=== PATIENT | male | born 1935 | race Caucasian/White ===

== ENCOUNTER 2018-04-24 09:18 | Inpatient (IN) ==
[2018-04-24] MEDS ORDERED: Sodium Chlor 0.9% Inj 500 ML IV.SIG ONE (09:49)
--- NOTE | 2018-04-24 10:14 | XR ---
EXAM DATE: 04/24/2018 10:07 AM EDT AGE/SEX: 82 years / Male INDICATIONS: Fever CLINICAL DATA: This is the patient's initial encounter. Patient reports that signs and symptoms have been present for 4 - 6 days and indicates a pain score of 0/10. MEDICAL/SURGICAL HISTORY: Cardiovascular disease. Pacemaker. COMPARISON: No prior exams available for comparison. FINDINGS: A single AP view of the chest demonstrates the lungs to be symmetrically aerated without evidence of mass, infiltrate or effusion. Slight elevation right hemidiaphragm. Left-sided pacemaker with [address] leads. The cardiomediastinal contours are unremarkable. Osseous structures are intact. CONCLUSION: Slight elevation right hemidiaphragm. No infiltrate. Electronically signed by: Juancarlos Romero MD 04/24/2018 10:13 AM EDT
[2018-04-24 10:19] LABS: Baso % (Auto) 0.2 % (0.0-2.0); Hematocrit 32.9 % (39.0-51.0); Hemoglobin 11.1 gm/dL (13.0-17.0); Lymph # (Auto) 0.2 th/mm3 (1.0-4.8); Lymph % (Auto) 2.6 % (9.0-44.0); Mean Corpuscular HGB Conc 33.7 % (32.0-36.0); Mean Corpuscular Hemoglobin 31.9 pg (27.0-34.0); Mean Corpuscular Volume 94.6 fL (80.0-100.0); Mean Platelet Volume 9.3 fL (7.0-11.0); Mono # (Auto) 0.6 th/mm3 (0.0-0.9); Mono % (Auto) 7.1 % (0.0-8.0); Neut # (Auto) 8.2 th/mm3 (1.8-7.7); Neut % (Auto) 90.1 % (16.0-70.0); Platelet Count 203 th/mm3 (150-450); Red Blood Count 3.48 mil/mm3 (4.50-5.90); Red Cell Distribution Width 16.4 % (11.6-17.2); White Blood Count 9.1 th/mm3 (4.0-11.0)
[2018-04-24 10:27] LABS: Activated Partial Thrombo Time 32.9 sec (24.3-30.1); INR 1.3 Ratio; Prothrombin Time 12.7 sec (9.8-11.6)
[2018-04-24 10:39] LABS: Alanine Aminotransferase 22 U/L (12-78); Albumin 2.9 g/dL (3.4-5.0); Anion Gap 12 meq/L (5-15); Aspartate Aminotransferase 16 U/L (15-37); Blood Urea Nitrogen 32 mg/dL (7-18); Calcium 8.2 mg/dL (8.5-10.1); Carbon Dioxide 23.9 meq/L (21.0-32.0); Chloride 104 meq/L (98-107); Glomerular Filtration Rate 27 mL/min (>89); Glucose,Random 156 mg/dL (74-106); Potassium 3.3 meq/L (3.5-5.1); Sodium 140 meq/L (136-145)
[2018-04-24 10:42] LABS: Alkaline Phosphatase 63 U/L (45-117); Total Protein 7.6 g/dL (6.4-8.2); Troponin I 0.17 ng/mL (0.02-0.05)
--- NOTE | 2018-04-24 10:48 | ED ---
HPI General Chief complaint: Weakness Stated complaint: Time Seen by Provider: 04/24/18 09:40 Source: patient Mode of arrival: ambulatory Limitations: no limitations History of Present Illness HPI narrative: Patient is a 82 year old male who comes in due to weakness and confusion. Per , this has been going on for about a month. Daughter says she noticed a change in him earlier this week. He went to see his doctor at the [facility] Wednesday and he is supposed to follow up with nephrology due to decreasing renal function. He says he has been feeling hot and having chills. He has had some nausea and some abdominal pain. He denies chest pain or SOB. He denies cough or cold. Severity is mild. says he is forgetful and seems confused at times. Related Data Home Medications Medication Instructions Recorded Confirmed amlodipine 10 mg PO DAILY 04/24/18 04/24/18 atorvastatin 40 mg PO DAILY 04/24/18 04/24/18 cholecalciferol (vitamin D3) 1,000 unit PO DAILY 04/24/18 04/24/18 [Vitamin D3] cyanocobalamin (vitamin B-12) 1,000 mcg PO DAILY 04/24/18 04/24/18 [Vitamin B-12] metoprolol tartrate 50 mg PO BID 04/24/18 04/24/18 warfarin 5 mg PO 5XW 04/24/18 04/24/18 warfarin 7.5 mg PO 2XWEEK 04/24/18 04/24/18 Allergies Allergy/AdvReac Type Severity Reaction Status Date / Time No Known Allergies Allergy Uncoded 07/25/13 09:23 Review of Systems Except as stated in HPI: all other systems reviewed are negative Constitutional Reports chills and Reports fever(s) Cardiovascular Denies chest pain and Denies edema Gastrointestinal Reports abdominal pain and Reports nausea Musculoskeletal Reports myalgias Integumentary/Breasts Denies change in pigmentation Neurologic Reports confusion and Denies focal weakness [facility] Medical History Medical History Congestive heart failure (Acute) High cholesterol (Acute) Hypertension (Acute) Pacemaker (Acute) Surgical History Surgical History History of skin surgery (Acute) Family History Family History Sister Cancer Brother Coronary artery disease Social History Social History Substance History: No History of Abuse Smoking Status: Never smoker How Often Do You Have a Drink Containing Alcohol: 2 to 4 times a month Recent Travel in [facility] within the Last 8 Weeks: No Recent Out of Country Travel within the Last 8 Weeks: No Immunization History Tetanus Immunization: <5 Years Hx Influenza Vaccine This Season: Yes Exam Narrative Exam Narrative: GENERAL: Awake and alert, in no acute distress. SKIN: Focused skin assessment warm/dry. No wounds or signs of infection. HEAD: Atraumatic. Normocephalic. EYES: Pupils equal and round and reactive. No scleral icterus. EOMI. ENT: No nasal bleeding or discharge. Mucous membranes pink and moist. NECK: Trachea midline. No JVD. CARDIOVASCULAR: Regular rate and rhythm. No murmur appreciated. RESPIRATORY: No accessory muscle use. Clear to auscultation. Breath sounds equal bilaterally. GASTROINTESTINAL: Abdomen soft, non-tender, nondistended. MUSCULOSKELETAL: No obvious deformities. No clubbing. No cyanosis. No edema. NEUROLOGICAL: Awake and alert. No obvious cranial nerve deficits. Motor grossly within normal limits. Normal speech. PSYCHIATRIC: Appropriate mood and affect; insight and judgment normal. Course Hospital Course: IV established, labs sent. CT head and abdomen and pelvis performed. Given IV fluids. Started on heparin drip, given aspirin. Reevaluation(s) Reevaluation #1: Labs concerning for elevated troponin as well as BNP. Chest x- ray shows no evidence of edema. CT of the abdomen and pelvis performed shows likely bladder obstruction with hydronephrosis bilaterally. Patient started on heparin drip. Garcias catheter inserted to relieve obstruction. Patient and family informed of results. Time: 12:00 Initial Documented Vital Signs Temperature 98.1 F 04/24/18 09:22 Pulse Rate 97 H 04/24/18 09:22 Respiratory Rate 19 04/24/18 09:22 Blood Pressure 158/70 H 04/24/18 09:22 Pulse Oximetry 98 04/24/18 09:22 Last Documented Vital Signs Temperature 98.1 F 04/24/18 09:22 Pulse Rate 80 04/24/18 10:34 Respiratory Rate 15 04/24/18 13:24 Blood Pressure 156/71 H 04/24/18 10:34 Pulse Oximetry 95 04/24/18 10:34 Medical Decision Making [facility] Narrative Medical decision making narrative: Patient is an 82-year-old male who comes in complaining of generalized weakness. Exam shows no acute abnormalities, no neurologic abnormalities. IV established, labs sent. Troponin is elevated to 0.17. BNP is 1600. Patient has no signs of fluid overload or feelings of shortness of breath. I discussed with the patient the results, and he told me he had some chest pain earlier in the week, currently he is chest pain-free. His INR is 1.3, despite being on Coumadin. He will be switched to heparin. Given a dose of aspirin. He will be admitted for further management. Differential Diagnosis Differential Diagnosis: ACS versus NSTEMI versus STEMI versus electrolyte abnormality Medical Records Medical records reviewed: Yes I reviewed the patient's medical records. Lab Data Result diagrams: 04/24/18 10:00 04/24/18 10:00 Lab Results 04/24/18 04/24/18 04/24/18 Range/Units 10:00 10:00 10:00 WBC 9.1 (4.0-11.0) th/mm3 RBC 3.48 L (4.50-5.90) mil/mm3 Hgb 11.1 L (13.0-17.0) gm/dL Hct 32.9 L (39.0-51.0) % MCV 94.6 (80.0-100.0) fL MCH 31.9 (27.0-34.0) pg MCHC 33.7 (32.0-36.0) % RDW 16.4 (11.6-17.2) % Plt Count 203 (150-450) th/mm3 MPV 9.3 (7.0-11.0) fL Neut % (Auto) 90.1 H (16.0-70.0) % Lymph % (Auto) 2.6 L (9.0-44.0) % [place] % (Auto) 7.1 (0.0-8.0) % Eos % (Auto) 0.0 (0.0-4.0) % Baso % (Auto) 0.2 (0.0-2.0) % Neut # (Auto) 8.2 H (1.8-7.7) th/mm3 Lymph # (Auto) 0.2 L (1.0-4.8) th/mm3 Lyon # (Auto) 0.6 (0.0-0.9) th/mm3 Eos # (Auto) 0.0 (0.0-0.4) th/mm3 Baso # (Auto) 0.0 (0.0-0.2) th/mm3 WBC Differential . Differential Comment Auto diff final PT 12.7 H (9.8-11.6) sec INR 1.3 Ratio APTT 32.9 H (24.3-30.1) sec Sodium 140 (136-145) meq/L Potassium 3.3 L (3.5-5.1) meq/L Chloride 104 (98-107) meq/L Carbon Dioxide 23.9 (21.0-32.0) meq/L Anion Gap 12 (5-15) meq/L BUN 32 H (7-18) mg/dL Creatinine 2.30 H (0.60-1.30) mg/dL Estimated GFR 27 L (>89) mL/min Random Glucose 156 H (74-106) mg/dL Calcium 8.2 L (8.5-10.1) mg/dL Total Bilirubin 0.6 (0.2-1.0) mg/dL AST 16 (15-37) U/L ALT 22 (12-78) U/L Alkaline Phosphatase 63 (45-117) U/L Total Creatine Kinase 71 (39-308) U/L Troponin I 0.17 H (0.02-0.05) ng/mL B-Natriuretic Peptide (0-100) pg/mL Total Protein 7.6 (6.4-8.2) g/dL Albumin 2.9 L (3.4-5.0) g/dL Urine Color (Yellw/Straw) Urine Clarity (Clear) Urine pH (5.0-8.5) Ur Specific [place] (1.002-1.035) Urine Protein (Neg-Trace) mg/dL Urine Glucose (UA) (Negative) mg/dL Urine Ketones (Negative) mg/dL Urine Occult Blood (Negative) Urine Nitrate (Negative) Urine Bilirubin (Negative) Urine Urobilinogen (Less than 2) mg/dL Ur Leukocyte Esterase (Negative) Urine RBC (0-3) /hpf Urine WBC (0-5) /hpf Urine WBC Clumps (None) Urine Bacteria (None) /hpf Hyaline Casts (0-3) /lpf Urine Mucus (Occasional) /lpf Micro UA Comment Urine Culture Comments 04/24/18 04/24/18 Range/Units 10:00 10:47 WBC (4.0-11.0) th/mm3 RBC (4.50-5.90) mil/mm3 Hgb (13.0-17.0) gm/dL Hct (39.0-51.0) % MCV (80.0-100.0) fL MCH (27.0-34.0) pg MCHC (32.0-36.0) % RDW (11.6-17.2) % Plt Count (150-450) th/mm3 MPV (7.0-11.0) fL Neut % (Auto) (16.0-70.0) % Lymph % (Auto) (9.0-44.0) % Lyon % (Auto) (0.0-8.0) % Eos % (Auto) (0.0-4.0) % Baso % (Auto) (0.0-2.0) % Neut # (Auto) (1.8-7.7) th/mm3 Lymph # (Auto) (1.0-4.8) th/mm3 Lyon # (Auto) (0.0-0.9) th/mm3 Eos # (Auto) (0.0-0.4) th/mm3 Baso # (Auto) (0.0-0.2) th/mm3 WBC Differential Differential Comment PT (9.8-11.6) sec INR Ratio APTT (24.3-30.1) sec Sodium (136-145) meq/L Potassium (3.5-5.1) meq/L Chloride (98-107) meq/L Carbon Dioxide (21.0-32.0) meq/L Anion Gap (5-15) meq/L BUN (7-18) mg/dL Creatinine (0.60-1.30) mg/dL Estimated GFR (>89) mL/min Random Glucose (74-106) mg/dL Calcium (8.5-10.1) mg/dL Total Bilirubin (0.2-1.0) mg/dL AST (15-37) U/L ALT (12-78) U/L Alkaline Phosphatase (45-117) U/L Total Creatine Kinase (39-308) U/L Troponin I (0.02-0.05) ng/mL B-Natriuretic Peptide 1647 H (0-100) pg/mL Total Protein (6.4-8.2) g/dL Albumin (3.4-5.0) g/dL Urine Color Yellow (Yellw/Straw) Urine Clarity Cloudy H (Clear) Urine pH 5.0 (5.0-8.5) Ur Specific [place] 1.009 (1.002-1.035) Urine Protein 30 H (Neg-Trace) mg/dL Urine Glucose (UA) Negative (Negative) mg/dL Urine Ketones Negative (Negative) mg/dL Urine Occult Blood Moderate H (Negative) Urine Nitrate Positive H (Negative) Urine Bilirubin Negative (Negative) Urine Urobilinogen Less than 2 (Less than 2) mg/dL Ur Leukocyte Esterase Large H (Negative) Urine RBC 2 (0-3) /hpf Urine WBC (0-5) /hpf Urine WBC Clumps Many H (None) Urine Bacteria Many H (None) /hpf Hyaline Casts 2 (0-3) /lpf Urine Mucus Few H (Occasional) /lpf Micro UA Comment Culture indicated Urine Culture Comments Culture indicated Imaging Data Radiologist's impression: ITS Impressions Abdomen/Pelvis CT 04/24/18 09:49 CONCLUSION: 1. Moderate bilateral hydronephrosis and hydroureter leading to a distended urinary bladder. Suspect a bladder outlet obstruction. 2. Small diverticulum left urinary bladder. 3. Right renal cyst and small hyperdense lesion right kidney may be due to complex cyst. 4. Diverticulosis without diverticulitis. 5. Right basilar density likely atelectasis. Chest X-Ray 04/24/18 09:49 CONCLUSION: Slight elevation right hemidiaphragm. No infiltrate. Head CT 04/24/18 09:49 CONCLUSION: 1. 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 2. No acute intracranial abnormality. Discharge Plan Discharge Disposition Patient Disposition: 30 Still Patient Discharge Details Discharge Problem: Acute non-ST elevation myocardial infarction (NSTEMI), CHF (congestive heart failure) Physicians Team ED Provider: Herimla Wilson Primary Care Provider: Ish Dominguez Attending Provider: Boyd Reed Other Providers: Jakob Johnson Discharge Interventions Interventions: Vital Signs Last Done: 04/24/18 10:34 Status ED Status: Admitted Patient
[2018-04-24 10:56] LABS: Creatine Kinase 71 U/L (39-308)
[2018-04-24 11:21] LABS: Bacteria,Urine Many /hpf; Bilirubin,Urine Negative (Negative); Clarity,Urine Cloudy (Clear); Color,Urine Yellow (Yellw/Straw); Glucose,Urine (UA) Negative (Negative); Hyaline Casts,Urine 2 /lpf (0-3); Leukocyte Esterase,Urine Large (Negative); Mucus,Urine Few /lpf (Occasional); Nitrite,Urine Positive (Negative); Specific Gravity,Urine 1.009 (1.002-1.035)
--- NOTE | 2018-04-24 11:32 | CT ---
EXAM DATE: 04/24/2018 11:16 AM EDT AGE/SEX: 82 years / Male INDICATIONS: Worsening generalized weakness. CLINICAL DATA: This is the patient's initial encounter. Patient reports that signs and symptoms have been present for 1 week and indicates a pain score of 0/10. MEDICAL/SURGICAL HISTORY: Congestive heart failure. Hypertension. Pacemaker. RADIATION DOSE: 46.40 CTDI (mGy) COMPARISON: No prior exams available for comparison. TECHNIQUE: CT of the head without contrast. Using automated exposure control and adjustment of the mA and/or kV according to patient size, radiation dose was kept as low as reasonably achievable to ob tain optimal diagnostic quality images. DICOM format image data is available electronically for revi ew and comparison. FINDINGS: Cerebrum: There is low-density throughout the white matter. The ventricles are normal for age. No ev idence of midline shift, mass lesion, hemorrhage or acute infarction. No extraaxial fluid collection s are seen. Posterior Fossa: The cerebellum and brainstem are intact. The 4th ventricle is midline. The cerebe llopontine angle is unremarkable. Extracranial: The visualized portion of the orbits is intact. Skull: The calvaria is intact. No evidence of skull fracture. CONCLUSION: 1. 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 2. No acute intracranial abnormality. Electronically signed by: Juancarlos Romero MD 04/24/2018 11:30 AM EDT
[2018-04-24] MEDS ORDERED: Heparin Drip 25,000 UNIT/250 ML BAG IV.CONT PRN (11:35)
--- NOTE | 2018-04-24 11:35 | CT ---
EXAM DATE: 04/24/2018 11:20 AM EDT AGE/SEX: 82 years / Male INDICATIONS: Generalized abdominal pain, chills, nausea. CLINICAL DATA: This is the patient's initial encounter. Patient reports that signs and symptoms have been present for 1 week and indicates a pain score of 2/10. MEDICAL/SURGICAL HISTORY: Congestive heart failure. Hypertension. Pacemaker. RADIATION DOSE: 6.71 CTDI (mGy) COMPARISON: No prior exams available for comparison. TECHNIQUE: Multiple contiguous axial images were obtained through the abdomen. Images were obtained using multiple row detector helical technique. Using automated exposure control and adjustment of the mA and/or kV according to patient size, radiation dose was kept as low as reasonably achievable to o btain optimal diagnostic quality images. DICOM format image data is available electronically for rev iew and comparison. FINDINGS: Lower Lungs: Right basilar density likely atelectasis. Liver: The liver has a homogeneous density without space-occupying lesion. There is no dilation of th e biliary tree. Spleen: Homogeneous density without enlargement. Pancreas: Unremarkable without mass or calcification. Kidneys: Moderate bilateral hydronephrosis and hydroureter leading to the bladder.. Right renal cyst s upper and lower pole. Hyperdense lesion upper pole right kidney measures approximately 1 cm. Adrenal Glands: Unremarkable. Aorta: The aorta and proximal iliac vessels are grossly unremarkable without aneurysmal dilation. Bowel/Mesentery: Diverticulosis without diverticulitis. Postsurgical changes along the stomach. Abdominal Wall: Intact. Retroperitoneum: No evidence of adenopathy in the retrocrural, para-aortic, or deep pelvic regions. Bladder: Distended urinary bladder with wall thickening. Small bladder diverticulum. Reproductive Organs: No abnormal masses or calcifications seen. Prominent prostate gland. Inguinal: Small fat-containing inguinal hernias. Bony Structures: Unremarkable. CONCLUSION: 1. Moderate bilateral hydronephrosis and hydroureter leading to a distended urinary bladder. Suspect a bladder outlet obstruction. 2. Small diverticulum left urinary bladder. 3. Right renal cyst and small hyperdense lesion right kidney may be due to complex cyst. 4. Diverticulosis without diverticulitis. 5. Right basilar density likely atelectasis. Electronically signed by: Juancarlos Romero MD 04/24/2018 11:33 AM EDT
[2018-04-24] MEDS ORDERED: Bisacodyl 10 MG Supp RECTAL PRN (12:40)
[2018-04-24] MEDS ORDERED: Temazepam 15 MG Capsule PO PRN (12:40)
--- NOTE | 2018-04-24 14:02 | ECG ---
Date Performed: 04/24/2018 Time Performed: 09:42:47 PTAGE: 82 years EKG: ELECTRONIC VENTRICULAR PACEMAKER ABNORMAL RHYTHM ECG PREVIOUS TRACING : 07/25/2013 10.15 No significant change from previous tracing noted. DOCTOR: Jakob Johnson Interpretating Date/Time 04/24/2018 14:01:36
--- NOTE | 2018-04-24 14:50 | MB ---
cc: Jakob Johnson MD, Alan S MD DATE: 04/24/2018 REASON FOR CONSULTATION: Congestive heart failure. HISTORY OF PRESENT ILLNESS: The patient is an 82-year-old white male, followed in our office by Dr. Devante Black, with a history of mild aortic stenosis, paroxysmal atrial flutter, coronary artery disease, chronic renal insufficiency, mild ischemic cardiomyopathy with ejection fraction of approximately 40%, pacemaker implant, who was brought to the hospital mainly with complaints of intermittent confusion for the last 3 to 4 weeks. Over the last 2-3 days, he has had poor oral intake and has had problems with nausea and retching. For the last several days, he has had a constant epigastric and left lower chest discomfort described as "pressure." He reports some increase in baseline shortness of breath with exertion. He denies paroxysmal nocturnal dyspnea, orthopnea, or pedal edema, lightheadedness, syncope, near syncope. Rarely he experiences fleeting fluttering, palpitations. He continues to feel intermittently moderately nauseated. PAST MEDICAL HISTORY: 1. Mild aortic stenosis demonstrated by echocardiogram 06/2017, at which time his mean transvalvular aortic gradient was 10 mmHg. 2. Paroxysmal atrial flutter. 3. Coronary artery disease with fixed inferior defect seen on nuclear stress testing 2009, 2013, 01/2018. 4. Mild ischemic cardiomyopathy with ejection fraction of approximately 40%. 5. Chronic renal insufficiency. 6. History of [place] permanent pacemaker implantation for complete heart block. 7. Benign prostatic hypertrophy. 8. Possible nonsustained ventricular tachycardia demonstrated by pacemaker checks. PAST SURGICAL HISTORY: 1. Pacemaker implant. 2. Partial gastrectomy. 3. Left thigh surgery for mass excision. CARDIAC MEDICATIONS AT HOME: 1. Atorvastatin 40 mg daily. 2. Amlodipine 10 mg daily. 3. Warfarin 5 mg 5 days out of the week, 7.5 mg the other 2 days. 4. Metoprolol tartrate 50 mg b.i.d. ALLERGIES: NO KNOWN DRUG ALLERGIES. FAMILY HISTORY: Noncontributory. SOCIAL HISTORY: The patient denies any history of alcohol or tobacco abuse. REVIEW OF SYSTEMS: As in history of present illness, otherwise negative or noncontributory. He does report a mild headache. He denies bright red blood per rectum, melena, dyspepsia, fevers, flu symptoms. PHYSICAL EXAMINATION: VITAL SIGNS: His blood pressure 156/70 with a pulse of 80, respirations 15. GENERAL: He is a well-developed, well-nourished white male, in no acute distress. NECK: Jugular venous pressure is normal. Carotid pulses are 2+ bilaterally and without bruits. CHEST: Reveals clear lungs vyas. CARDIAC: He has a regular rhythm and rate without S3, S4, or murmur. ABDOMEN: He has a soft, nontender abdomen. Bowel sounds are present. There is no definite hepatosplenomegaly. EXTREMITIES: Reveals no clubbing, cyanosis or edema. LABORATORY DATA: Includes WBC 9.1, hemoglobin 11.1, platelets 203. INR 1.3. Potassium 3.3, BUN 32, creatinine 2.30. Brain natriuretic peptide level 1647, troponin 0.17, CK 71. EKG shows atrial sensed ventricular paced rhythm. Chest x-ray shows no acute disease. IMPRESSION: Probably overall stable cardiac status in this 82-year-old white male with a history of pacemaker implant for complete heart block, paroxysmal atrial flutter, coronary artery disease, mild ischemic cardiomyopathy, chronic renal insufficiency, mainly admitted with intermittent confusion, generalized weakness, poor oral intake. I have been asked to see the patient for congestive heart failure. There is no evidence for congestive heart failure by exam or chest x-ray. The slight elevation in troponin is nonspecific. CK is negative for myocardial infarction. He did have a nuclear stress test 01/2018, which showed an unchanged fixed inferior defect. EKG is nondiagnostic due to underlying paced rhythm. He has demonstrated no recent recurrent paroxysmal atrial flutter. His INR is subtherapeutic. RECOMMENDATIONS: 1. Continue medical therapy for his cardiac problems. 2. No additional cardiac workup at this time. 3. Continue his usual home cardiac medications and try to adjust his warfarin to achieve an INR of 2 to 2.5. 4. Will followup as needed. MD AZRA Anna/XIAO , 02:24 PM , 02:48 PM CLIFF
--- NOTE | 2018-04-24 15:17 | P.HPIM ---
History of Present Illness Primary Care Physician: Ish Dominguez MD History of Present Illness: Mr. Richter is an 82 year old male. He is brought to the emergency department due to progressive weakness and new onset confusion. As an outpatient he follows up at the [place]. His family reports that he saw his primary physician on the fifth. At that time he had a creatinine of 1.9. Creatinine is 2.3 today. Other findings in the ER today are a elevated BNP and an elevated troponin. This patient has a past history of cardiac arrhythmia and has a pacemaker present. Concern is present for an acute cardiac event which could have causes troponin elevation and acute onset of CHF. However, the urinalysis shows he has a UTI and if this has been present for a while she could have inflammatory changes causing false positives in the findings. Clinically as patient does not have findings of pulmonary edema or peripheral edema. He says he may have had chest pain a couple days ago but has no chest pain when seen today. Potassium level is low. This patient also reports fevers and chills as an outpatient which would correlate with infection. Inpatient Certification: I certify that the inpatient services were ordered in accordance with Medicare regulations governing the order. This includes certification that hospital inpatient services are reasonable and necessary and in the case of services not specified as inpatient-only under 42 CFR 419.22(n), that they are appropriately provided as inpatient services in accordance to with the 2-midnight benchmark under 43 CFR 412.3(e) Estimated Total Length of Stay (Days): 3 Plans for Post Hospital Care: Home Review of Systems Constitutional: Reports chills, Reports fever(s), Reports night sweats Eyes: Denies blind spots, Denies blurry vision, Denies bulging eyes Ears, Nose, Mouth, and Throat: Denies abnormal hearing, Denies bleeding gums, Denies change in voice, Denies ear pain, Denies nasal discharge Cardiovascular: Reports chest pain, Denies chest pain at rest, Denies chest pain with activity Respiratory: Denies cough, Denies shortness of breath, Denies wheezing Gastrointestinal: Denies abdominal pain, Denies bloating, Denies bright, red blood in stools Musculoskeletal: Reports abnormal walking, Reports muscle weakness, Denies back pain, Denies body aches Skin/Breast: Denies rash, Denies skin pain, Denies skin ulcer PMFSH - History History Provided By: Patient, Family Member - Medical History Medical History: Medical History (Last Reviewed 04/24/18 @ 11:01 by Hermila Wilson MD) Congestive heart failure High cholesterol Hypertension Pacemaker - Surgical History Surgical History: Surgical History (Last Reviewed 04/24/18 @ 11:01 by Hermila Wilson MD) History of skin surgery - Family History Family History: Family History (Last Updated 04/24/18 @ 15:09 by Boyd Reed MD) Sister Cancer Brother Coronary artery disease - Tobacco History Smoking Status: Never smoker - Alcohol History How Often Do You Have a Drink Containing Alcohol: 2 to 4 times a month - Substance Use History Substance History: No History of Abuse - Travel History Recent Travel in the [place] Within the Last 8 Weeks: No Recent Travel Out of the Country Within the Last 8 Weeks: No - Immunization History Tetanus Immunization: <5 Years Hx Influenza Vaccine This Season: Yes Medications and Allergies Active Medications: Active Medications Al Hydroxide/Mg Hydroxide (Milk Of Magnesia Liq) 30 ml PO Q12H PRN PRN Reason: Mild Constipation Al Hydroxide/Mg Hydroxide (Milk Of Magnesia Liq) 30 ml PO Q12H PRN PRN Reason: Mild Constipation Amlodipine Besylate (Norvasc) 10 mg PO DAILY [facility] Atorvastatin Calcium (Lipitor) 40 mg PO DAILY [facility] Bisacodyl (Dulcolax Supp) 10 mg RECTAL DAILY PRN PRN Reason: SEVERE CONSITIPATION Cyanocobalamin (Vitamin B12) 1,000 mcg PO DAILY [facility] Heparin Sodium/Dextrose (Heparin/D5w 25,000 U/250 Ml) 25,000 unit in 250 mls @ 0 mls/hr IV.CONT TITRATE PRN; Protocol PRN Reason: Per Protocol Last Admin: 04/24/18 12:13 Dose: 900 units/hr, 9 mls/hr Lactulose (Lactulose Liq) 30 ml PO DAILY PRN PRN Reason: SEVERE CONSITIPATION Metoprolol Tartrate (Lopressor) 50 mg PO BID [facility] Non-Formulary Medication (Cholecalciferol (Vitamin D3) [Vitamin D3]) 1,000 unit PO DAILY [facility] Senna/Docusate Sodium (Jaquelin-Colace) 1 tab PO BID [facility] Sennosides (Senokot) 17.2 mg PO Q12H PRN PRN Reason: Moderate Constipation Sodium Chloride (Ns Flush) 2 ml IV.FLUSH PRN PRN PRN Reason: FLUSH AFTER USING IV ACCESS Last Admin: 04/24/18 10:31 Dose: 2 ml Temazepam (Restoril) 15 mg PO HS PRN PRN Reason: INSOMNIA Warfarin Sodium (Coumadin) 5 mg PO SuTuWeThSa [facility] Warfarin Sodium (Coumadin) 7.5 mg PO MoFr [facility] Allergies Allergy/AdvReac Type Severity Reaction Status Date / Time No Known Allergies Allergy Uncoded 07/25/13 09:23 Home Medications Medication Instructions Recorded Confirmed Type amlodipine 10 mg PO DAILY 04/24/18 04/24/18 History atorvastatin 40 mg PO DAILY 04/24/18 04/24/18 History cholecalciferol (vitamin D3) 1,000 unit PO DAILY 04/24/18 04/24/18 History [Vitamin D3] cyanocobalamin (vitamin B-12) 1,000 mcg PO DAILY 04/24/18 04/24/18 History [Vitamin B-12] metoprolol tartrate 50 mg PO BID 04/24/18 04/24/18 History warfarin 5 mg PO 5XW 04/24/18 04/24/18 History warfarin 7.5 mg PO 2XWEEK 04/24/18 04/24/18 History Exam Vital signs: Vital Signs 04/24/18 09:22 04/24/18 09:53 04/24/18 09:54 Temperature 98.1 F Pulse Rate 97 H 83 Respiratory Rate 19 15 Blood Pressure 158/70 H 148/71 H Pulse Oximetry 98 95 95 04/24/18 10:34 04/24/18 13:24 Temperature Pulse Rate 80 Respiratory Rate 21 15 Blood Pressure 156/71 H Pulse Oximetry 95 Intake & Output 04/23/18 04/24/18 04/24/18 18:59 06:59 18:59 Output Total 100 / 100 Balance -100 / -100 Weight 72.121 kg Output: Urine 100 / 100 Other: # Incontinent Voids 1 - Routine HEENT Exam Comments: GENERAL: NAD, A&Ox3 HEAD: Normocephalic. NECK: Supple, trachea midline. No lymphadenopathy. EYES: No scleral icterus. No injection or drainage. CARDIOVASCULAR: Regular rate and rhythm without murmurs, gallops, or rubs. RESPIRATORY: Breath sounds equal bilaterally. No accessory muscle use. GASTROINTESTINAL: Abdomen soft, non-tender, nondistended. MUSCULOSKELETAL: No cyanosis, or edema. SKIN: Warm and dry. NEURO: No focal neurological deficits. Results - Labs CBC & Chem 7: 04/24/18 10:00 04/24/18 10:00 Labs: Short CBC 04/24/18 Range/Units 10:00 WBC 9.1 (4.0-11.0) th/mm3 Hgb 11.1 L (13.0-17.0) gm/dL Hct 32.9 L (39.0-51.0) % Plt Count 203 (150-450) th/mm3 BMP 04/24/18 10:00 Sodium 140 Potassium 3.3 L Chloride 104 Carbon Dioxide 23.9 BUN 32 H Creatinine 2.30 H Calcium 8.2 L Cardiac Enzymes 04/24/18 Range/Units 10:00 Total Creatine Kinase 71 (39-308) U/L Troponin I 0.17 H (0.02-0.05) ng/mL Liver Function 04/24/18 Range/Units 10:00 Total Bilirubin 0.6 (0.2-1.0) mg/dL AST 16 (15-37) U/L ALT 22 (12-78) U/L Alkaline Phosphatase 63 (45-117) U/L Albumin 2.9 L (3.4-5.0) g/dL Urine 04/24/18 Range/Units 10:47 Urine Color Yellow (Yellw/Straw) Urine Clarity Cloudy H (Clear) Urine pH 5.0 (5.0-8.5) Ur Specific [place] 1.009 (1.002-1.035) Urine Protein 30 H (Neg-Trace) mg/dL Urine Glucose (UA) Negative (Negative) mg/dL - Imaging Impressions Abdomen/Pelvis CT 04/24/18 09:49 CONCLUSION: 1. Moderate bilateral hydronephrosis and hydroureter leading to a distended urinary bladder. Suspect a bladder outlet obstruction. 2. Small diverticulum left urinary bladder. 3. Right renal cyst and small hyperdense lesion right kidney may be due to complex cyst. 4. Diverticulosis without diverticulitis. 5. Right basilar density likely atelectasis. Chest X-Ray 04/24/18 09:49 CONCLUSION: Slight elevation right hemidiaphragm. No infiltrate. Head CT 07/08/18 09:49 CONCLUSION: 1. 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 2. No acute intracranial abnormality. Caprini VTE Risk Assessment Caprini VTE Risk Assessment: Moderate/High Risk (score >= 2) Caprini Risk Assessment Model: Point Value = 1 Point Value = 2 Point Value = 3 Point Value = 5 Age 41-60 Minor surgery BMI > 25 kg/m2 Swollen legs Varicose veins or History of unexplained or recurrent spontaneous Oral contraceptives or hormone replacement Sepsis (< 1 month) Serious lung disease, including pneumonia (< 1 month) Abnormal pulmonary function Acute myocardial infarction Congestive heart failure (< 1 month) History of inflammatory bowel disease Medical patient at bed rest Age 61-74 Arthroscopic surgery Major open surgery (> 45 min) Laparoscopic surgery (> 45 min) Malignancy Confined to bed (> 72 hours) Immobilizing plaster cast Central venous access Age >= 75 History of VTE Family history of VTE Factor V Leiden Prothrombin 49301L Lupus anticoagulant Anticardiolipin antibodies Elevated serum homocysteine Heparin-induced thrombocytopenia Other congenital or acquired thrombophilia Stroke (< 1 month) Elective arthroplasty Hip, pelvis, or leg fracture Acute spinal cord injury (< 1 month) Prophylaxis Regimen: Total Risk Factor Score Risk Level Prophylaxis Regimen 0-1 Low Early ambulation 2 Moderate Order ONE of the following: *Sequential Compression Device (SCD) *Heparin 5000 units SQ BID 3-4 Higher Order ONE of the following medications: *Heparin 5000 units SQ TID *Enoxaparin/Lovenox 40 mg SQ daily (WT < 150 kg, CrCl > 30 mL/min) *Enoxaparin/Lovenox 30 mg SQ daily (WT < 150 kg, CrCl > 10-29 mL/min) *Enoxaparin/Lovenox 30 mg SQ BID (WT < 150 kg, CrCl > 30 mL/min) AND/OR *Sequential Compression Device (SCD) 5 or more Highest Order ONE of the following medications: *Heparin 5000 units SQ TID (Preferred with Epidurals) *Enoxaparin/Lovenox 40 mg SQ daily (WT < 150 kg, CrCl > 30 mL/min) *Enoxaparin/Lovenox 30 mg SQ daily (WT < 150 kg, CrCl > 10-29 mL/min) *Enoxaparin/Lovenox 30 mg SQ BID (WT < 150 kg, CrCl > 30 mL/min) AND *Sequential Compression Device (SCD) Assessment and Plan - Plan 82-year-old male admitted secondary to weakness with confusion in the presence of a urinary tract infection, findings of positive troponin, elevated BNP, and subtherapeutic INR. Urinary tract infection This may be the primary etiology for changes seen Start Rocephin Probiotics Follow urine culture Acute kidney injury Oral hydration for now due to potential for CHF Treat infection Follow renal function Consider nephrology consult if worsening occurs Generalized weakness Begin physical therapy Replace potassium Hypokalemia Replace and monitor potassium levels Positive troponin Elevated BNP Follow cardiac enzymes Echocardiogram A distant echocardiogram had an ejection fraction of 60% Pulse elevations in troponin could be related to current acute kidney injury and inflammation BNP may be elevated in the presence of infection if significant changes are seen in cardiac enzymes or echocardiogram to suggest a cardiac event consult cardiology Atrial fibrillation Pacemaker Subtherapeutic INR Continue Coumadin Heparin IV Follow INR Hypertensive urgency on hypertension Resume home treatment of amlodipine As needed clonidine Follow blood pressures Hyperlipidemia Continue present treatment Follow as an outpatient DVT prophylaxis Continue Coumadin Heparin drip until Coumadin therapeutic
[2018-04-24] MEDS: Lactobacillus Acidophilus/L. Spores Tablet PO SCH (18:36)
[2018-04-24 19:22] LABS: Activated Partial Thrombo Time 56.6 sec (24.3-30.1); INR 1.2 Ratio; Prothrombin Time 12.4 sec (9.8-11.6)
[2018-04-24] MEDS: Senna/Docusate Sodium 8.6/50 MG Tablet PO SCH (23:37)
[2018-04-24] MEDS: Metoprolol Tartrate 50 MG Tablet PO SCH (23:37)
[2018-04-25 07:24] LABS: Baso % (Auto) 0.1 % (0.0-2.0); Eos % (Auto) 0.1 % (0.0-4.0); Hematocrit 32.5 % (39.0-51.0); Hemoglobin 10.8 gm/dL (13.0-17.0); Lymph # (Auto) 0.4 th/mm3 (1.0-4.8); Lymph % (Auto) 4.3 % (9.0-44.0); Mean Corpuscular HGB Conc 33.4 % (32.0-36.0); Mean Corpuscular Hemoglobin 31.6 pg (27.0-34.0); Mean Corpuscular Volume 94.6 fL (80.0-100.0); Mean Platelet Volume 9.5 fL (7.0-11.0); Mono # (Auto) 0.6 th/mm3 (0.0-0.9); Mono % (Auto) 6.3 % (0.0-8.0); Neut # (Auto) 8.3 th/mm3 (1.8-7.7); Neut % (Auto) 89.2 % (16.0-70.0); Platelet Count 176 th/mm3 (150-450); Red Blood Count 3.43 mil/mm3 (4.50-5.90); Red Cell Distribution Width 17.1 % (11.6-17.2); White Blood Count 9.3 th/mm3 (4.0-11.0)
[2018-04-25 07:45] LABS: Alanine Aminotransferase 19 U/L (12-78); Albumin 2.4 g/dL (3.4-5.0); Alkaline Phosphatase 57 U/L (45-117); Anion Gap 10 meq/L (5-15); Aspartate Aminotransferase 19 U/L (15-37); Blood Urea Nitrogen 45 mg/dL (7-18); Calcium 8.3 mg/dL (8.5-10.1); Carbon Dioxide 24.7 meq/L (21.0-32.0); Chloride 106 meq/L (98-107); Glomerular Filtration Rate 24 mL/min (>89); Glucose,Random 118 mg/dL (74-106); Potassium 4.1 meq/L (3.5-5.1); Sodium 141 meq/L (136-145); Total Protein 7.1 g/dL (6.4-8.2)
[2018-04-25] MEDS: Lactobacillus Acidophilus/L. Spores Tablet PO SCH ×2 (09:42→13:17)
[2018-04-25] MEDS: Senna/Docusate Sodium 8.6/50 MG Tablet PO SCH ×2 (09:43→20:48)
[2018-04-25] MEDS: amLODIPine 10 MG Tablet PO SCH (09:43)
[2018-04-25] MEDS: Metoprolol Tartrate 50 MG Tablet PO SCH ×2 (09:43→20:48)
--- NOTE | 2018-04-25 12:09 | P.PN ---
Subjective Interval history: Follow-up for Non-STEMI, acute on chronic kidney disease. Patient is currently doing well. No chest pain at this time. He does get chest discomfort on ambulation. No fever or chills. Daughter and at bedside. Physical Exam Vital signs: Vital Signs 04/24/18 12:30 04/24/18 13:24 04/24/18 13:30 Temperature Pulse Rate 97 H 94 H Respiratory Rate 24 15 24 Blood Pressure 196/89 H 191/92 H Pulse Oximetry 94 L 95 04/24/18 14:30 04/24/18 15:30 04/24/18 16:00 Temperature Pulse Rate 94 H 96 H 94 H Respiratory Rate 21 25 H 18 Blood Pressure 196/94 H 203/89 H 177/79 H Pulse Oximetry 95 04/24/18 16:30 04/24/18 17:30 04/24/18 18:00 Temperature Pulse Rate 88 88 86 Respiratory Rate 24 18 20 Blood Pressure 139/63 136/60 143/65 H Pulse Oximetry 94 L 97 98 04/24/18 18:30 04/24/18 19:37 04/24/18 20:00 Temperature 100.3 F H Pulse Rate 81 83 Respiratory Rate 18 Blood Pressure 114/63 Pulse Oximetry 04/24/18 20:04 04/25/18 00:00 04/25/18 04:00 Temperature 99.2 F 98.0 F Pulse Rate 85 62 72 Respiratory Rate 18 16 16 Blood Pressure 114/58 L 115/62 131/71 Pulse Oximetry 96 96 97 04/25/18 07:00 04/25/18 08:00 Temperature 99 F Pulse Rate 70 74 Respiratory Rate 16 Blood Pressure 145/72 H Pulse Oximetry Intake & Output 04/24/18 04/25/18 04/25/18 18:59 06:59 18:59 Intake Total 740 / 740 Output Total 600 / 600 250 / 250 Balance -600 / -600 490 / 490 Weight 72.121 kg 73 kg Intake: IV 500 / 500 NS Inj 500 ML @ Wide Open IV. 500 / 500 SIG BOLUS ONE Rx#:[id number] Oral 240 / 240 Output: Urine 600 / 600 250 / 250 Other: # Voids 2 # Incontinent Voids 1 Date of Last Bowel Movement 04/25/18 Narrative: GENERAL: Alert, oriented 3, NAD. SKIN: Warm and dry. HEAD: Normocephalic. EYES: No scleral icterus. No injection or drainage. NECK: Supple, trachea midline. No JVD or lymphadenopathy. CARDIOVASCULAR: Regular rate and rhythm without murmurs, gallops, or rubs. RESPIRATORY: Breath sounds equal bilaterally. No accessory muscle use. GASTROINTESTINAL: Abdomen soft, non-tender, nondistended. MUSCULOSKELETAL: No cyanosis, or edema. BACK: Nontender without obvious deformity. No CVA tenderness. Results - Labs CBC & Chem 7: 04/25/18 06:47 04/25/18 06:47 Laboratory Results - last 24 hr 04/24/18 04/24/18 04/24/18 17:00 18:30 22:30 WBC RBC Hgb Hct MCV MCH MCHC RDW Plt Count MPV Neut % (Auto) Lymph % (Auto) [place] % (Auto) Eos % (Auto) Baso % (Auto) Neut # (Auto) Lymph # (Auto) [place] # (Auto) Eos # (Auto) Baso # (Auto) WBC Differential Differential Comment PT 12.4 H INR 1.2 APTT 56.6 H D Sodium Potassium Chloride Carbon Dioxide Anion Gap BUN Creatinine Estimated GFR Random Glucose Calcium Total Bilirubin AST ALT Alkaline Phosphatase Troponin I 0.34 H 0.97 H* Total Protein Albumin 04/25/18 04/25/18 04/25/18 06:47 06:47 08:44 WBC 9.3 RBC 3.43 L Hgb 10.8 L Hct 32.5 L MCV 94.6 MCH 31.6 MCHC 33.4 RDW 17.1 Plt Count 176 MPV 9.5 Neut % (Auto) 89.2 H Lymph % (Auto) 4.3 L [place] % (Auto) 6.3 Eos % (Auto) 0.1 Baso % (Auto) 0.1 Neut # (Auto) 8.3 H Lymph # (Auto) 0.4 L [place] # (Auto) 0.6 Eos # (Auto) 0.0 Baso # (Auto) 0.0 WBC Differential . Differential Comment Auto diff final PT INR APTT 44.8 H D Sodium 141 Potassium 4.1 D Chloride 106 Carbon Dioxide 24.7 Anion Gap 10 BUN 45 H Creatinine 2.55 H Estimated GFR 24 L Random Glucose 118 H Calcium 8.3 L Total Bilirubin 0.2 AST 19 ALT 19 Alkaline Phosphatase 57 Troponin I Total Protein 7.1 Albumin 2.4 L Assessment and Plan - Plan Mr. Richter is a pleasant 82-year-old male with a history of CAD who presented to the emergency department on 04/24/2018 due to progressive weakness and new confusion. He also reports chest discomfort on ambulation at home. He was found to have elevated BNP as well as elevated troponin. His creatinine was also elevated to 2.3. His baseline is about 1.9. Urinalysis indicated possible UTI. Acute metabolic encephalopathy Urinary tract infection -Encephalopathic could be due to infection. -Continue ceftriaxone 1 g every 24 hours. -Follow culture results. Non-ST elevation myocardial infarction History of atrial fibrillation -Patient reports chest pressure and his troponins were elevated. -Cardiology evaluated patient and recommended noninterventional management. -I discussed with dust handler Dr. Johnson ==> will discontinue heparin drip, start Imdur. -Aspirin was recommended by cardiology. However patient cannot tolerate aspirin due to previous stomach ulcers. -Patient takes warfarin for A. fib anticoagulation. -We discussed about switching warfarin to apixaban 2.5 mg twice daily due to patient's age and creatinine. -Patient's family will check with insurance about the coverage of apixaban. Acute kidney injury Chronic kidney disease stage III -Creatinine went from 2.3 ==> 2.55. Patient does not have a lithographic etcher outpatient. -We will consult on-call lithographic etcher while patient is in the hospital due to worsening renal function. Full code. Warfarin.
--- NOTE | 2018-04-25 12:21 | P.CONNP ---
History of Present Illness Consult date: 04/25/18 Reason for Consult: Acute on chronic renal insufficiency Primary Care Provider: Ish Dominguez MD History of Present Illness: 82-year-old male currently with a history of chronic kidney disease but also with a history of prostatic disease. He has not followed up with a urologist since his own previous urologist retired a few years ago. Indicating to me that his urinary flow is somewhat slow and he does have a history of nocturia about 3 times nightly. Patient presented to the hospital with a history of increasing weakness, anorexia and mention of confusion in the records although he appeared to be fairly alert during the visit today. On presentation creatinine noted to be 2.[address] scan has revealed bilateral hydronephrosis. Urology has not yet been consulted. The patient also has a history of coronary disease, sick sinus syndrome, pacemaker placement, ejection fraction said to be 45% as well as a history of mild aortic valve insufficiency. His web art director saw the patient earlier today and indicated that there was no evidence of congestive heart failure and chest x-ray [place] shows no evidence of pulmonary edema on report. Patient denies using NSAIDs for analgesia. Review of Systems All other systems reviewed negative except as stated in HPI PMFSH - History History Provided By: Patient, Medical Record - Medical History Medical History: Medical History (Last Updated 04/25/18 @ 12:14 by Shawn Young MD) BPH (benign prostatic hyperplasia) CKD (chronic kidney disease) stage 3, GFR 30-59 ml/min Congestive heart failure High cholesterol Hypertension Pacemaker - Surgical History Surgical History: Surgical History (Last Reviewed 04/25/18 @ 07:54 by Grzegorz Canchola) History of skin surgery - Family History Family History: Family History (Last Reviewed 04/24/18 @ 15:20 by Hermila Wilson MD) Sister Cancer Brother Coronary artery disease - Tobacco History Second Hand Smoke Exposure: No Tobacco Use In Past 30 Days: No Smoking Status: Never smoker - Alcohol History How Often Do You Have a Drink Containing Alcohol: Monthly or less - Substance Use History Substance History: No History of Abuse - Travel History Recent Travel in the [place] Within the Last 8 Weeks: No Recent Travel Out of the Country Within the Last 8 Weeks: No - Immunization History Tetanus Immunization: <5 Years Hx Influenza Vaccine This Season: Yes Medications and Allergies Active Medications: Active Medications Al Hydroxide/Mg Hydroxide (Milk Of Magnesia Liq) 30 ml PO Q12H PRN PRN Reason: Mild Constipation Al Hydroxide/Mg Hydroxide (Milk Of Magnesia Liq) 30 ml PO Q12H PRN PRN Reason: Mild Constipation Amlodipine Besylate (Norvasc) 10 mg PO DAILY [facility] Last Admin: 04/25/18 09:43 Dose: 10 mg Atorvastatin Calcium (Lipitor) 40 mg PO DAILY [facility] Last Admin: 04/25/18 09:42 Dose: 40 mg Bisacodyl (Dulcolax Supp) 10 mg RECTAL DAILY PRN PRN Reason: SEVERE CONSITIPATION Clonidine HCl (Catapres) 0.1 mg PO Q6H PRN PRN Reason: SYS BP GREATER THAN 160 MMHG Last Admin: 04/24/18 15:25 Dose: 0.1 mg Cyanocobalamin (Vitamin B12) 1,000 mcg PO DAILY [facility] Last Admin: 04/25/18 09:44 Dose: 1,000 mcg Ceftriaxone Sodium 1,000 mg/ (Sodium Chloride) 100 mls @ 200 mls/hr IV.SIG Q24H [facility] Last Admin: 04/24/18 15:29 Dose: 200 mls/hr Isosorbide Mononitrate (Imdur) 30 mg PO DAILY@0700 [facility] Lactobacillus Acidophilus (Lactinex) 1 tab PO TID [facility] Last Admin: 04/25/18 09:42 Dose: 1 tab Lactulose (Lactulose Liq) 30 ml PO DAILY PRN PRN Reason: SEVERE CONSITIPATION Metoprolol Tartrate (Lopressor) 50 mg PO BID [facility] Last Admin: 04/25/18 09:43 Dose: 50 mg Senna/Docusate Sodium (Jaquelin-Colace) 1 tab PO BID [facility] Last Admin: 04/25/18 09:43 Dose: Not Given Sennosides (Senokot) 17.2 mg PO Q12H PRN PRN Reason: Moderate Constipation Sodium Chloride (Ns Flush) 2 ml IV.FLUSH PRN PRN PRN Reason: FLUSH AFTER USING IV ACCESS Last Admin: 04/24/18 10:31 Dose: 2 ml Temazepam (Restoril) 15 mg PO HS PRN PRN Reason: INSOMNIA Vitamin D (Vitamin D3) 1,000 unit PO DAILY [facility] Last Admin: 04/25/18 09:44 Dose: 1,000 unit Warfarin S[facility]in) [facility] Admin: 04/24/18 15:25 Dose: 5 mg Warfarin Sodium (Coumadin) 7.5 mg PO MoFr [facility] Allergies Allergy/AdvReac Type Severity Reaction Status Date / Time No Known Allergies Allergy Uncoded 07/25/13 09:23 Home Medications Medication Instructions Recorded Confirmed Type amlodipine 10 mg PO DAILY 04/24/18 04/24/18 History atorvastatin 40 mg PO DAILY 04/24/18 04/24/18 History cholecalciferol (vitamin D3) 1,000 unit PO DAILY 04/24/18 04/24/18 History [Vitamin D3] cyanocobalamin (vitamin B-12) 1,000 mcg PO DAILY 04/24/18 04/24/18 History [Vitamin B-12] metoprolol tartrate 50 mg PO BID 04/24/18 04/24/18 History warfarin 5 mg PO 5XW 04/24/18 04/24/18 History warfarin 7.5 mg PO 2XWEEK 04/24/18 04/24/18 History Exam Vital signs: Vital Signs 04/24/18 12:30 04/24/18 13:24 04/24/18 13:30 Temperature Pulse Rate 97 H 94 H Respiratory Rate 24 15 24 Blood Pressure 196/89 H 191/92 H Pulse Oximetry 94 L 95 04/24/18 14:30 04/24/18 15:30 04/24/18 16:00 Temperature Pulse Rate 94 H 96 H 94 H Respiratory Rate 21 25 H 18 Blood Pressure 196/94 H 203/89 H 177/79 H Pulse Oximetry 95 04/24/18 16:30 04/24/18 17:30 04/24/18 18:00 Temperature Pulse Rate 88 88 86 Respiratory Rate 24 18 20 Blood Pressure 139/63 136/60 143/65 H Pulse Oximetry 94 L 97 98 04/24/18 18:30 04/24/18 19:37 04/24/18 20:00 Temperature 100.3 F H Pulse Rate 81 83 Respiratory Rate 18 Blood Pressure 114/63 Pulse Oximetry 04/24/18 20:04 04/25/18 00:00 04/25/18 04:00 Temperature 99.2 F 98.0 F Pulse Rate 85 62 72 Respiratory Rate 18 16 16 Blood Pressure 114/58 L 115/62 131/71 Pulse Oximetry 96 96 97 07/09/18 07:00 04/25/18 08:00 Temperature 99 F Pulse Rate 70 74 Respiratory Rate 16 Blood Pressure 145/72 H Pulse Oximetry Intake & Output 04/24/18 04/25/18 04/25/18 18:59 06:59 18:59 Intake Total 740 / 740 Output Total 600 / 600 250 / 250 Balance -600 / -600 490 / 490 Weight 72.121 kg 73 kg Intake: IV 500 / 500 NS Inj 500 ML @ Wide Open IV. 500 / 500 SIG BOLUS ONE Rx#:[id number] Oral 240 / 240 Output: Urine 600 / 600 250 / 250 Other: # Voids 2 # Incontinent Voids 1 Date of Last Bowel Movement 04/25/18 Narrative: GENERAL: Patient appears somewhat thin and malnourished. Mucous membranes are dry. SKIN: Warm and dry. Skin turgor diminished. HEAD: Normocephalic. EYES: No scleral icterus. No injection or drainage. NECK: Supple, trachea midline. No JVD CARDIOVASCULAR: Regular rate and rhythm without murmurs, gallops, or rubs. RESPIRATORY: Breath sounds equal bilaterally. No accessory muscle use. GASTROINTESTINAL: Abdomen soft, non-tender, nondistended. MUSCULOSKELETAL: No cyanosis, or edema. BACK: Nontender without obvious deformity. No CVA tenderness. Results - Lab Results 04/25/18 06:47 04/25/18 06:47 Most recent lab results Calcium 8.3 mg/dL (8.5-10.1) L 04/25/18 06:47 Assessment and Plan - Assessment (1) Acute renal insufficiency Code(s): N28.9 - Disorder of kidney and ureter, unspecified Status: Acute Onset Date: Unknown Plan: Based on CT scan appears to be related to obstructive uropathy. This is a urological issue. Recommend consulting urology. Patient will likely require Garcias catheter placement. In addition the patient does appear to be somewhat volume depleted. Hydration as ordered. Medications should be adjusted for the patient's estimated GFR if clinically indicated. Avoid agents with significant potential for nephrotoxicity possible including NSAIDs for analgesia, iodine contrast agents. Gadolinium is contraindicated if the GFR is below 30. (2) CKD (chronic kidney disease) stage 4, GFR 15-29 ml/min Code(s): N18.4 - Chronic kidney disease, stage 4 (severe) Status: Chronic Plan: Patient's GFR is currently below 30 but unsure this is his usual baseline level. Remains to be determined whether not patient is actually CKD stage IV versus CKD stage III. Chronic kidney disease most likely related to nephrosclerosis of aging. Serological screening as ordered. Screening for secondary hyperparathyroidism renal disease also.
[2018-04-25] MEDS: Dextrose 5%/NaCl 0.45% Inj 1,000 ML IV.CONT SCH (13:21)
--- NOTE | 2018-04-25 14:06 | ECG ---
Date Performed: 04/24/2018 Time Performed: 20:43:48 PTAGE: 82 years EKG: Sinus rhythm with 1st degree A-V block PROBABLY PACED RYTHMN Since the PREVIOUS TRACING , no significant change noted Abnormal ECG PREVIOUS TRACING 04/24/2018 DOCTOR: Liu Palacio Interpretating Date/Time 04/25/2018 14:05:00
--- NOTE | 2018-04-25 15:12 | P.DCO ---
- Physical Therapy Order: Evaluate and treat, Improve ambulation, Strength and gait training - Home Health Nursing Order: Medical education, CHF education, Nursing assessment with vital signs - Certification I have seen patient Frank Richter on 04/25/18. My clinical findings support the need for the requested home health care services because: Limited mobility due to disease progression, Deconditioned with increased weakness, Limited ability to care for self, Need for psychosocial assistance, High risk of falls, Infection with risk of complications I certify that my clinical findings support that this patient is homebound because: Unsteady gait/balance, Unsafe to leave home unassisted, Need for psychosocial assistance, Non-ambulatory: confined to bed or chair, Unable to use public transportation, Poor cardiac reserve
--- NOTE | 2018-04-25 18:00 | ECHRPT ---
Indication: CONCLUSIONS Technically difficult study. The left ventricular systolic function is severely reduced with an estimated ejection fraction in th e range of 30-35%. There is global left ventricular dysfunction. Moderate mitral valve regurgitation. Trace aortic valve regurgitation. There is mild tricuspid valve regurgitation. BP: / HR: Rhythm: Sinus MEASUREMENTS (Male / Female) Normal Values Technical Quality:Technically difficult study 2D ECHO LV Diastolic Diameter PLAX 5.7 cm 4.2 - 5.9 / 3.9 - 5.3 cm LV Systolic Diameter PLAX 4.9 cm IVS Diastolic Thickness 1.1 cm 0.6 - 1.0 / 0.6 - 0.9 cm LVPW Diastolic Thickness 1.1 cm 0.6 - 1.0 / 0.6 - 0.9 cm LV Relative Wall Thickness 0.4 RV Internal Dim ED PLAX 2.8 cm LVOT Diameter 2.0 cm LA Systolic Diameter LX 4.0 cm 3.0 - 4.0 / 2.7 - 3.8 cm LV Ejection Fraction MOD 4C 38.2 % LV Ejection Fraction 4C AL 39.7 % M-MODE Aortic Root Diameter MM 2.9 cm LA Systolic Diameter MM 4.0 cm LA Ao Ratio MM 1.4 AV Cusp Separation MM 1.5 cm DOPPLER AV Peak Velocity 195.0 cm/s AV Peak Gradient 15.2 mmHg AI Peak Velocity 207.0 cm/s AI Peak Gradient 17.1 mmHg AI Pressure Half Time 791.0 ms LVOT Peak Velocity 92.8 cm/s LVOT Peak Gradient 3.4 mmHg AV Area Cont Eq pk 1.5 cm MV Peak Velocity 152.0 cm/s MV Peak Gradient 9.2 mmHg MV Mean Velocity 92.3 cm/s MV Mean Gradient 4.0 mmHg MV Area PHT 5.4 cm Mitral E Point Velocity 110.0 cm/s Mitral A Point Velocity 92.3 cm/s Mitral E to A Ratio 1.2 LV E' Lateral Velocity 6.4 cm/s Mitral E to LV E' Lateral Ratio 17.1 LV E' Septal Velocity 6.2 cm/s Mitral E to LV E' Septal Ratio 17.6 TR Peak Velocity 291.0 cm/s TR Peak Gradient 33.9 mmHg Right Atrial Pressure 10.0 mmHg Pulmonary Artery Systolic Pressu 43.9 mmHg Right Ventricular Systolic Press 43.9 mmHg FINDINGS LEFT VENTRICLE The left ventricular systolic function is severely reduced with an estimated ejection fraction in th e range of 30-35%. Normal left ventricular size. Wall thickness is normal. There is global left ventricular dysfunction. There is abnormal septal motion consistent with an intraventricular conduction delay. RIGHT VENTRICLE Grossly normal A pacemaker wire is noted. LEFT ATRIUM The left atrial size is mildly dilated. RIGHT ATRIUM The right atrial size is normal. There is a pacemaker wire present in the right atrial cavity. ATRIAL SEPTUM Normal atrial septal thickness without atrial level shunting by limited color doppler interrogation. AORTA The aortic root and proximal ascending aorta are normal in size on limited imaging. MITRAL VALVE Structurally normal mitral valve. Moderate mitral valve regurgitation. No mitral valve stenosis. AORTIC VALVE Probable trileaflet aortic valve. Diffuse calcification of the aortic valve. Trace aortic valve regurgitation. No aortic valve stenosis. TRICUSPID VALVE Structurally normal tricuspid valve. There is mild tricuspid valve regurgitation. The estimated pulmonary arterial pressure is 43.9 mmHg. PULMONARY VALVE No pulmonary valve regurgitation or stenosis. VESSELS The inferior vena cava is normal in size. PERICARDIUM No pericardial effusion. Jose Ace DO (Electronically Signed) Final Date:25 April 2018 17:59
[2018-04-25] MEDS: Acetaminophen 325 MG Tablet PO PRN (21:36)
[2018-04-26] MEDS: Dextrose 5%/NaCl 0.45% Inj 1,000 ML IV.CONT SCH ×2 (03:34→13:05)
[2018-04-26] MEDS: Acetaminophen 325 MG Tablet PO PRN (05:39)
[2018-04-26] MEDS: Isosorbide Mononitrate 30 MG ER 24HR Tablet (Imdur) PO SCH (06:29)
[2018-04-26 08:05] LABS: Hematocrit 31.6 % (39.0-51.0); Hemoglobin 10.6 gm/dL (13.0-17.0); Mean Corpuscular HGB Conc 33.6 % (32.0-36.0); Mean Corpuscular Hemoglobin 31.8 pg (27.0-34.0); Mean Corpuscular Volume 94.6 fL (80.0-100.0); Mean Platelet Volume 9.7 fL (7.0-11.0); Platelet Count 175 th/mm3 (150-450); Red Blood Count 3.34 mil/mm3 (4.50-5.90); Red Cell Distribution Width 16.4 % (11.6-17.2); White Blood Count 5.6 th/mm3 (4.0-11.0)
[2018-04-26] MEDS: Lactobacillus Acidophilus/L. Spores Tablet PO SCH ×4 (08:27→18:46)
[2018-04-26] MEDS: amLODIPine 10 MG Tablet PO SCH (08:27)
[2018-04-26] MEDS: Senna/Docusate Sodium 8.6/50 MG Tablet PO SCH ×2 (08:27→20:11)
[2018-04-26] MEDS: Metoprolol Tartrate 50 MG Tablet PO SCH ×2 (08:27→20:11)
[2018-04-26 08:31] LABS: Albumin 2.2 g/dL (3.4-5.0); Carbon Dioxide 25.2 meq/L (21.0-32.0); Phosphorus 2.8 mg/dL (2.5-4.9)
[2018-04-26 08:57] LABS: Potassium 2.7 meq/L (3.5-5.1)
--- NOTE | 2018-04-26 11:19 | P.PNNP ---
Subjective Interval history: 82-year-old male currently with a history of chronic kidney disease but also with a history of prostatic disease. He has not followed up with a urologist since his own previous urologist retired a few years ago. Indicating to me that his urinary flow is somewhat slow and he does have a history of nocturia about 3 times nightly. Patient presented to the hospital with a history of increasing weakness, anorexia and mention of confusion in the records although he appeared to be fairly alert during the visit today. On presentation creatinine noted to be 2.[address] scan has revealed bilateral hydronephrosis. Urology has not yet been consulted. The patient also has a history of coronary disease, sick sinus syndrome, pacemaker placement, ejection fraction said to be 45% as well as a history of mild aortic valve insufficiency. His steel wheel engraver saw the patient AND indicated that there was no evidence of congestive heart failure and chest x- ray shows no evidence of pulmonary edema on report. Patient denies using NSAIDs for analgesia prior to admission. Patient indicating that he feels somewhat better today. Noted to have spiked fever overnight. Physical Exam Vital signs: Vital Signs 04/25/18 12:00 04/25/18 12:01 04/25/18 13:01 Temperature 98.5 F Pulse Rate 72 80 69 Respiratory Rate 18 Blood Pressure 151/73 H Pulse Oximetry 04/25/18 14:00 04/25/18 15:00 04/25/18 16:00 Temperature 97.7 F Pulse Rate 74 102 H 94 H Respiratory Rate 20 Blood Pressure 160/79 H Pulse Oximetry 04/25/18 17:00 04/25/18 18:00 04/25/18 20:00 Temperature 101.9 F H Pulse Rate 87 94 H 88 Respiratory Rate 18 Blood Pressure 168/78 H Pulse Oximetry 95 04/25/18 23:45 04/26/18 00:00 04/26/18 03:55 Temperature 97.9 F Pulse Rate 60 64 75 Respiratory Rate 18 Blood Pressure 146/71 H Pulse Oximetry 97 04/26/18 04:00 04/26/18 06:28 04/26/18 08:00 Temperature 101.6 F H 98 F 98.6 F Pulse Rate 81 69 63 Respiratory Rate 18 18 20 Blood Pressure 169/82 H 132/63 125/60 Pulse Oximetry 95 95 Intake & Output 04/25/18 04/26/18 04/26/18 18:59 06:59 18:59 Intake Total 1350 / 1350 1240 / 1240 Output Total 1800 / 1800 3300 / 3300 Balance -450 / -450 -2060 / -2060 Weight 70.3 kg Intake: IV 150 / 150 1000 / 1000 D5W/1/2 NS Inj 1,000 ML @ 84 1000 / 1000 mls/hr IV.CONT .[id number] [facility] Rx# :[id number] Heparin/D5W 25,000 U/250 mL 25, 150 / 150 000 unit In 250 ml @ Per Protocol IV.CONT TITRATE PRN Rx #:[id number] Oral 1200 / 1200 240 / 240 Output: Urine 400 / 400 3300 / 3300 Urine Amount (Catheter) 1400 / 1400 Indwelling Urethral Catheter 1400 / 1400 Other: Date of Last Bowel Movement 04/25/18 # Bowel Movements 0 - Constitutional no acute distress, chronically ill appearing - Routine HEENT Exam ENT: Present: mucous membranes moist - Routine Respiratory Exam Present: CTA bilaterally - Routine Cardiovascular Exam Present: RRR - Routine Abdominal Exam Present: soft - Routine Skin Exam Present: dry - Routine Neurological Exam Present: alert - Urinary Catheter Management Indwelling Urethral Catheter Cath placed during this visit: yes Reason for continuing: Acute urinary retention Insertion date: 04/25/18 Insertion time: 18:45 Assessment and Plan - Assessment (1) Acute renal insufficiency Code(s): N28.9 - Disorder of kidney and ureter, unspecified Status: Acute Onset Date: Unknown Plan: Based on CT scan appears to be related to obstructive uropathy. This is a urological issue. Creatinine level improved post Garcias catheter placement and also with IV hydration. Noted hypokalemia and primary care physician is supplemented. Will defer to primary. Also UTI secondary to E. coli. Blood cultures ordered and pending. Defer antibiotic therapy to primary also. Medications should be adjusted for the patient's estimated GFR if clinically indicated. Avoid agents with significant potential for nephrotoxicity possible including NSAIDs for analgesia, iodine contrast agents. Gadolinium is contraindicated if the GFR is below 30. (2) CKD (chronic kidney disease) stage 4, GFR 15-29 ml/min Code(s): N18.4 - Chronic kidney disease, stage 4 (severe) Status: Chronic Plan: unsure what the patient's baseline renal function is and this remains to be determined whether not patient is actually CKD stage IV versus CKD stage III. Chronic kidney disease most likely related to nephrosclerosis of aging. (3) Secondary hyperparathyroidism Code(s): N25.81 - Secondary hyperparathyroidism of renal origin Status: Chronic Plan: I will check vitamin D level. Suspect the patient may have secondary hyperparathyroidism vitamin D3 deficiency or related to his chronic kidney disease.
--- NOTE | 2018-04-26 14:05 | P.PN ---
Subjective Interval history: Follow-up non-ST elevation [place]/acute kidney injury superimposed on chronic kidney disease April 26, 2018-patient seen and examined, states he feels weak and reported decreased appetite. Denies any shortness of breath or chest pain. and daughter by the bedside. States, when ready for discharge to like to go home Physical Exam Vital signs: Vital Signs 04/25/18 14:00 04/25/18 15:00 04/25/18 16:00 Temperature 97.7 F Pulse Rate 74 102 H 94 H Respiratory Rate 20 Blood Pressure 160/79 H Pulse Oximetry 04/25/18 17:00 04/25/18 18:00 04/25/18 20:00 Temperature 101.9 F H Pulse Rate 87 94 H 88 Respiratory Rate 18 Blood Pressure 168/78 H Pulse Oximetry 95 04/25/18 23:45 04/26/18 00:00 04/26/18 03:55 Temperature 97.9 F Pulse Rate 60 64 75 Respiratory Rate 18 Blood Pressure 146/71 H Pulse Oximetry 97 04/26/18 04:00 04/26/18 06:28 04/26/18 08:00 Temperature 101.6 F H 98 F 98.6 F Pulse Rate 81 69 63 Respiratory Rate 18 18 20 Blood Pressure 169/82 H 132/63 125/60 Pulse Oximetry 95 95 Intake & Output 04/25/18 04/26/18 04/26/18 18:59 06:59 18:59 Intake Total 1350 / 1350 1240 / 1240 1000 / 1000 Output Total 1800 / 1800 3300 / 3300 Balance -450 / -450 -2060 / -2060 1000 / 1000 Weight 70.3 kg Intake: IV 150 / 150 1000 / 1000 1000 / 1000 D5W/1/2 NS Inj 1,000 ML @ 84 1000 / 1000 1000 / 1000 mls/hr IV.CONT .[id number] [facility] Rx# :[id number] Heparin/D5W 25,000 U/250 mL 25, 150 / 150 000 unit In 250 ml @ Per Protocol IV.CONT TITRATE PRN Rx #:[id number] Oral 1200 / 1200 240 / 240 Output: Urine 400 / 400 3300 / 3300 Urine Amount (Catheter) 1400 / 1400 Indwelling Urethral Catheter 1400 / 1400 Other: Date of Last Bowel Movement 04/25/18 # Bowel Movements 0 Narrative: GENERAL: NAD. SKIN: Warm and dry. HEAD: Normocephalic. EYES: No scleral icterus. No injection or drainage. NECK: Supple, trachea midline. No JVD or lymphadenopathy. CARDIOVASCULAR: Regular rate and rhythm without murmurs, gallops, or rubs. RESPIRATORY: Breath sounds equal bilaterally. No accessory muscle use. GASTROINTESTINAL: Abdomen soft, non-tender, nondistended. MUSCULOSKELETAL: No cyanosis, or edema. BACK: Nontender without obvious deformity. No CVA tenderness. - Urinary Catheter Management Indwelling Urethral Catheter Cath placed during this visit: yes Reason for continuing: Acute urinary retention Insertion date: 04/25/18 Insertion time: 18:45 Results - Labs CBC & Chem 7: 04/26/18 07:15 04/26/18 07:15 Laboratory Results - last 24 hr 04/24/18 04/26/18 04/26/18 10:47 07:15 07:15 WBC 5.6 RBC 3.34 L Hgb 10.6 L Hct 31.6 L MCV 94.6 MCH 31.8 MCHC 33.6 RDW 16.4 Plt Count 175 MPV 9.7 Sodium 141 Potassium 2.7 L* D Chloride 106 Carbon Dioxide 25.2 Anion Gap 10 BUN 41 H Creatinine 2.04 H Estimated GFR 31 L Random Glucose 140 H Calcium 8.0 L Phosphorus 2.8 Total Protein (PEP) 6.7 Albumin 2.2 L PTH Intact Urine Color Yellow Urine Clarity Cloudy H Urine pH 5.0 Ur Specific [place] 1.009 Urine Protein 30 H Urine Glucose (UA) Negative Urine Ketones Negative Urine Occult Blood Moderate H Urine Nitrate Positive H Urine Bilirubin Negative Urine Urobilinogen Less than 2 Ur Leukocyte Esterase Large H Urine RBC 2 Urine WBC Urine WBC Clumps Many H Urine Bacteria Many H Hyaline Casts 2 Urine Mucus Few H Micro UA Comment Culture indicated Urine Culture Comments Culture indicated 04/26/18 07:15 WBC RBC Hgb Hct MCV MCH MCHC RDW Plt Count MPV Sodium Potassium Chloride Carbon Dioxide Anion Gap BUN Creatinine Estimated GFR Random Glucose Calcium Phosphorus Total Protein (PEP) Albumin PTH Intact 88.0 H Urine Color Urine Clarity Urine pH Ur Specific Jamison Urine Protein Urine Glucose (UA) Urine Ketones Urine Occult Blood Urine Nitrate Urine Bilirubin Urine Urobilinogen Ur Leukocyte Esterase Urine RBC Urine WBC Urine WBC Clumps Urine Bacteria Hyaline Casts Urine Mucus Micro UA Comment Urine Culture Comments Microbiology 04/24/18 10:47 Clean Catch Urine Urine Culture - Final Escherichia coli Assessment and Plan - Assessment (1) Acute non-ST elevation myocardial infarction (NSTEMI) Code(s): I21.4 - Non-ST elevation (NSTEMI) myocardial infarction Status: Acute (2) Acute renal insufficiency Code(s): N28.9 - Disorder of kidney and ureter, unspecified Status: Acute Onset Date: Unknown (3) CKD (chronic kidney disease) stage 4, GFR 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 -d/c ceftriaxone 1 g every 24 hours. Will Start Ceftin 250mg BID Non-ST elevation myocardial infarction History of atrial fibrillation -Patient reports chest pressure and his troponins were elevated. -Cardiology evaluated patient and recommended noninterventional management. -On Imdur, Coumadin -Aspirin was recommended by cardiology. However patient cannot tolerate aspirin due to previous stomach ulcers. -Patient takes warfarin for A. fib anticoagulation. -We discussed about switching warfarin to apixaban 2.5 mg twice daily due to patient's age and creatinine. -Patient's family will check with insurance about the coverage of apixaban. Acute kidney injury d/t obstructive uropathy Chronic kidney disease stage III -Appreciate input from Nephrology pending Urology; Patient will need Garcias on discharge Hypokalemia Will give K 60Meq x 1 and monitor Generalized weakness PT to treat and eval Full code. Warfarin.
--- NOTE | 2018-04-26 14:35 | P.CONURO ---
History of Present Illness Service: Urology Consult date: 04/26/18 Requesting Physician: Ronald Orosco Reason for Consult: BPH/ SAINZ/ Uropathy Primary Care Provider: Ish Dominguez MD History of Present Illness: Patient is a 82 year old male who came to the hospital on 04/24/18 due to weakness and confusion. Per , this has been going on for about a month. Daughter says she noticed a change in him earlier this week. He went to see his doctor at the [facility] Wednesday and he is supposed to follow up with nephrology due to decreasing renal function. He says he has been feeling hot and having chills. He has had some nausea and some abdominal pain. He denies chest pain or SOB. He denies cough or cold. Severity is mild. says he is forgetful and seems confused at times His current UC is growing E coli. Urology consulted for BPH, retention and obstructive uropathy. Pt was seen by in the past but several years ago that doctor retired and he has no Urologist since then. He has no f/c/n/v but had fever up to 101 yesterday, no flank pain. Admits weaker stream, intermittency and hesitancy as well as more frequent voiding. His CT on admission showed b/l hydroureteronephrosis and distended bladder. Cruz was placed. No hematuria. His cr was also elevated up to 2.5 but since cruz placement its decreasing Review of Systems All other systems reviewed negative except as stated in HPI PMFSH - History History Provided By: Patient, Medical Record - Medical History Medical History: Medical History (Last Updated 04/25/18 @ 12:14 by Shawn Young MD) BPH (benign prostatic hyperplasia) CKD (chronic kidney disease) stage 3, GFR 30-59 ml/min Congestive heart failure High cholesterol Hypertension Pacemaker - Surgical History Surgical History: Surgical History (Last Reviewed 04/25/18 @ 07:54 by Grzegorz Canchola) History of skin surgery - Family History Family History: Family History (Last Reviewed 04/24/18 @ 15:20 by Hermila Wilson MD) Sister Cancer Brother Coronary artery disease - Tobacco History Second Hand Smoke Exposure: No Tobacco Use In Past 30 Days: No Smoking Status: Never smoker - Alcohol History How Often Do You Have a Drink Containing Alcohol: Monthly or less - Substance Use History Substance History: No History of Abuse - Travel History Recent Travel in the [place] Within the Last 8 Weeks: No Recent Travel Out of the Country Within the Last 8 Weeks: No - Immunization History Tetanus Immunization: <5 Years Hx Influenza Vaccine This Season: Yes Medications and Allergies Active Medications: Active Medications Acetaminophen (Tylenol) 650 mg PO Q4H PRN PRN Reason: Fever > 100.4 F/chavez Last Admin: 04/26/18 05:39 Dose: 650 mg Al Hydroxide/Mg Hydroxide (Milk Of Magnesia Liq) 30 ml PO Q12H PRN PRN Reason: Mild Constipation Amlodipine Besylate (Norvasc) 10 mg PO DAILY [facility] Last Admin: 04/26/18 08:27 Dose: 10 mg Atorvastatin Calcium (Lipitor) 40 mg PO DAILY [facility] Last Admin: 04/26/18 08:28 Dose: 40 mg Bisacodyl (Dulcolax Supp) 10 mg RECTAL DAILY PRN PRN Reason: SEVERE CONSITIPATION Cefuroxime Axetil (Ceftin) 250 mg PO Q12HR [facility] Clonidine HCl (Catapres) 0.1 mg PO Q6H PRN PRN Reason: SYS BP GREATER THAN 160 [facility] Last Admin: 04/26/18 05:39 Dose: 0.1 mg Cyanocobalamin (Vitamin B12) 1,000 mcg PO DAILY [facility] Last Admin: 04/26/18 08:27 Dose: 1,000 mcg Dextrose/Sodium Chloride (D5w/1/2 Ns Inj) 1,000 mls @ 84 mls/hr IV.CONT .[id number] [facility] Last Admin: 04/26/18 13:05 Dose: 84 mls/hr Isosorbide Mononitrate (Imdur) 30 mg PO DAILY@0700 [facility] Last Admin: 04/26/18 06:29 Dose: 30 mg Lactobacillus Acidophilus (Lactinex) 1 tab PO TID [facility] Last Admin: 04/26/18 13:05 Dose: 1 tab Lactulose (Lactulose Liq) 30 ml PO DAILY PRN PRN Reason: SEVERE CONSITIPATION Metoprolol Tartrate (Lopressor) 50 mg PO BID [facility] Last Admin: 04/26/18 08:27 Dose: 50 mg Senna/Docusate Sodium (Jaquelin-Colace) 1 tab PO BID [facility] Last Admin: 04/26/18 08:27 Dose: 1 tab Sennosides (Senokot) 17.2 mg PO Q12H PRN PRN Reason: Moderate Constipation Sodium Chloride (Ns Flush) 2 ml IV.FLUSH PRN PRN PRN Reason: FLUSH AFTER USING IV ACCESS Last Admin: 04/24/18 10:31 Dose: 2 ml Temazepam (Restoril) 15 mg PO HS PRN PRN Reason: INSOMNIA Vitamin D (Vitamin D3) 1,000 unit PO DAILY [facility] Last Admin: 04/26/18 08:27 Dose: 1,000 unit Warfarin Sodium (Coumadin) 5 mg PO [id number] [facility] Last Admin: 04/24/18 15:25 Dose: 5 mg Warfarin Sodium (Coumadin) 7.5 mg PO MoFr [facility] Last Admin: 04/25/18 15:53 Dose: 7.5 mg Allergies Allergy/AdvReac Type Severity Reaction Status Date / Time No Known Allergies Allergy Uncoded 07/25/13 09:23 Home Medications Medication Instructions Recorded Confirmed Type amlodipine 10 mg PO DAILY 04/24/18 04/24/18 History atorvastatin 40 mg PO DAILY 04/24/18 04/24/18 History cholecalciferol (vitamin D3) 1,000 unit PO DAILY 04/24/18 04/24/18 History [Vitamin D3] cyanocobalamin (vitamin B-12) 1,000 mcg PO DAILY 04/24/18 04/24/18 History [Vitamin B-12] metoprolol tartrate 50 mg PO BID 04/24/18 04/24/18 History warfarin 5 mg PO 5XW 04/24/18 04/24/18 History warfarin 7.5 mg PO 2XWEEK 04/24/18 04/24/18 History Physical Exam Vital Signs - 24 hr 04/25/18 15:00 04/25/18 16:00 04/25/18 17:00 Temperature 97.7 F Pulse Rate 102 H 94 H 87 Respiratory Rate 20 Blood Pressure 160/79 H Pulse Oximetry 04/25/18 18:00 04/25/18 20:00 04/25/18 23:45 Temperature 101.9 F H Pulse Rate 94 H 88 60 Respiratory Rate 18 Blood Pressure 168/78 H Pulse Oximetry 95 04/26/18 00:00 04/26/18 03:55 04/26/18 04:00 Temperature 97.9 F 101.6 F H Pulse Rate 64 75 81 Respiratory Rate 18 18 Blood Pressure 146/71 H 169/82 H Pulse Oximetry 97 95 04/26/18 06:28 04/26/18 08:00 Temperature 98 F 98.6 F Pulse Rate 69 63 Respiratory Rate 18 20 Blood Pressure 132/63 125/60 Pulse Oximetry 95 Physical Exam: GENERAL: This is a well-nourished, well-developed patient, in no apparent distress. SKIN: No rashes, ecchymoses or lesions. Cool and dry. HEAD: Atraumatic. Normocephalic. EYES: Pupils equal round and reactive. CARDIOVASCULAR: Regular rate and rhythm without murmurs, gallops, or rubs. RESPIRATORY: Clear to auscultation. Breath sounds equal bilaterally. No wheezes , rales, or rhonchi. GASTROINTESTINAL: Abdomen soft, non-tender, nondistended. GENITOURINARY: Cruz is in a good position. otherwise normal exam MUSCULOSKELETAL: Extremities without clubbing, cyanosis, or edema. NEUROLOGICAL: Awake and alert. Laboratory Results - last 24 hr 04/26/18 04/26/18 04/26/18 07:15 07:15 07:15 WBC 5.6 RBC 3.34 L Hgb 10.6 L Hct 31.6 L MCV 94.6 MCH 31.8 MCHC 33.6 RDW 16.4 Plt Count 175 MPV 9.7 Sodium 141 Potassium 2.7 L* D Chloride 106 Carbon Dioxide 25.2 Anion Gap 10 BUN 41 H Creatinine 2.04 H Estimated GFR 31 L Random Glucose 140 H Calcium 8.0 L Phosphorus 2.8 Total Protein (PEP) 6.7 Albumin 2.2 L PTH Intact 88.0 H Microbiology 04/24/18 10:47 Urine Culture - Final Clean Catch Urine Escherichia coli Result Diagrams: 04/26/18 07:15 04/26/18 07:15 Imaging: ITS Impressions Abdomen/Pelvis CT 04/24/18 09:49 CONCLUSION: 1. Moderate bilateral hydronephrosis and hydroureter leading to a distended urinary bladder. Suspect a bladder outlet obstruction. 2. Small diverticulum left urinary bladder. 3. Right renal cyst and small hyperdense lesion right kidney may be due to complex cyst. 4. Diverticulosis without diverticulitis. 5. Right basilar density likely atelectasis. Chest X-Ray 04/24/18 09:49 CONCLUSION: Slight elevation right hemidiaphragm. No infiltrate. Head CT 04/24/18 09:49 CONCLUSION: 1. 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 2. No acute intracranial abnormality. Assessment and Plan - Assessment (1) BPH NOS w ur obs/LUTS Code(s): N40.1 - Benign prostatic hyperplasia with lower urinary tract symptoms Status: Acute (2) Hydronephrosis Code(s): N13.30 - Unspecified hydronephrosis Status: Acute (3) Urinary retention due to benign prostatic hyperplasia Code(s): N40.1 - Benign prostatic hyperplasia with lower urinary tract symptoms ; R33.8 - Other retention of urine Status: Acute - Plan 82y.o M with UTI, BPH and retention which caused b/l mechanical hydro. - No acute intervention - Continue care as per primary team - Follow up on final Cultures and adjust antbx according to C&S if needed - Keep cruz catheter in for 10days and when ready to be d/c, discharge with cruz catheter - Start Flomax daily, ordered - Renal US to f/u on Hydronephrosis in 48hrs after cruz placement - Pt to follow up with urology after discharge for cruz catheter removal and voiding trial. If he will have a VNS service arranged for him his cruz can be removed at AM by a visiting nurse in 10days and he will need to f/u with Urology for PVR check at the afternoon Discussed Condition With: Dr Bang MERCADO attending who agrees with this plan
[2018-04-27] MEDS: Dextrose 5%/NaCl 0.45% Inj 1,000 ML IV.CONT SCH ×2 (04:52→12:02)
[2018-04-27] MEDS: Isosorbide Mononitrate 30 MG ER 24HR Tablet (Imdur) PO SCH (06:26)
[2018-04-27] MEDS: amLODIPine 10 MG Tablet PO SCH (08:17)
[2018-04-27] MEDS: Senna/Docusate Sodium 8.6/50 MG Tablet PO SCH (08:19)
[2018-04-27] MEDS: Lactobacillus Acidophilus/L. Spores Tablet PO SCH ×2 (08:19→12:02)
[2018-04-27] MEDS: Metoprolol Tartrate 50 MG Tablet PO SCH (08:19)
--- NOTE | 2018-04-27 10:44 | P.PN ---
Subjective Interval history: Follow-up non-ST elevation [place]/acute kidney injury superimposed on chronic kidney disease April 26, 2018-patient seen and examined, states he feels weak and reported decreased appetite. Denies any shortness of breath or chest pain. and daughter by the bedside. States, when ready for discharge to like to go home April 27, 2018-patient seen and examined, states he is feeling much better. Has Garcias in place 10 more days total. Ready for discharge home. Family by the bedside Physical Exam Vital signs: Vital Signs 04/26/18 12:00 04/26/18 16:00 04/26/18 19:45 Temperature 98.2 F 98.7 F Pulse Rate 61 73 71 Respiratory Rate 20 20 Blood Pressure 125/59 L 151/73 H Pulse Oximetry 95 96 04/26/18 20:00 04/26/18 23:45 04/27/18 00:00 Temperature 100 F H 98.7 F Pulse Rate 73 69 70 Respiratory Rate 16 18 Blood Pressure 145/67 H 142/69 H Pulse Oximetry 95 93 L 04/27/18 04:00 04/27/18 04:15 04/27/18 08:00 Temperature 98.8 F 99.0 F Pulse Rate 77 72 75 Respiratory Rate 16 18 Blood Pressure 156/80 H 154/76 H Pulse Oximetry 95 94 L Intake & Output 04/26/18 04/27/18 04/27/18 18:59 06:59 18:59 Intake Total 1360 / 1360 1720 / 1720 Output Total 2300 / 2300 950 / 950 Balance -940 / -940 770 / 770 Weight 70.8 kg Intake: IV 1000 / 1000 1000 / 1000 D5W/1/2 NS Inj 1,000 ML @ 84 1000 / 1000 1000 / 1000 mls/hr IV.CONT .[id number] [facility] Rx# :[id number] Oral 360 / 360 720 / 720 Output: Urine 2300 / 2300 950 / 950 Other: # Bowel Movements 0 Narrative: GENERAL: NAD. SKIN: Warm and dry. HEAD: Normocephalic. EYES: No scleral icterus. No injection or drainage. NECK: Supple, trachea midline. No JVD or lymphadenopathy. CARDIOVASCULAR: Regular rate and rhythm without murmurs, gallops, or rubs. RESPIRATORY: Breath sounds equal bilaterally. No accessory muscle use. GASTROINTESTINAL: Abdomen soft, non-tender, nondistended. MUSCULOSKELETAL: No cyanosis, or edema. BACK: Nontender without obvious deformity. No CVA tenderness. - Urinary Catheter Management Indwelling Urethral Catheter Cath placed during this visit: yes Reason for continuing: Acute urinary retention Insertion date: 04/25/18 Insertion time: 18:45 Results - Labs CBC & Chem 7: 04/26/18 07:15 04/26/18 07:15 Microbiology 04/24/18 10:47 Clean Catch Urine Urine Culture - Final Escherichia coli - Procedures None Assessment and Plan - Assessment (1) Acute non-ST elevation myocardial infarction (NSTEMI) Code(s): I21.4 - Non-ST elevation (NSTEMI) myocardial infarction Status: Resolved (2) Acute renal insufficiency Code(s): N28.9 - Disorder of kidney and ureter, unspecified Status: Resolved Onset Date: Unknown (3) CKD (chronic kidney disease) stage 4, GFR 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 -s/p ceftriaxone 1 g every 24 hours. Currently on Ceftin 250mg BID Non-ST elevation myocardial infarction History of atrial fibrillation -Patient reports chest pressure and his troponins were elevated. -Cardiology evaluated patient and recommended noninterventional management. -Continue Imdur, Coumadin -Aspirin was recommended by cardiology. However patient cannot tolerate aspirin due to previous stomach ulcers. -Patient takes warfarin for A. fib anticoagulation. -Patient's family will check with insurance about the coverage of apixaban. Acute kidney injury d/t obstructive uropathy Chronic kidney disease stage III -Appreciate input from Nephrology -Patient seen by urology, recommending Garcias in place 10 days -Currently on Flomax Hypokalemia Status post treatment with potassium replaced Generalized weakness PT to treat and eval Full code. Warfarin.
--- NOTE | 2018-04-27 10:48 | P.DS ---
Date of admission: 04/24/18 12:41 Primary care physician: Ish Dominguez MD Brief History from admission: Mr. Richter is an 82 year old male. He is brought to the emergency department due to progressive weakness and new onset confusion. As an outpatient he follows up at the [facility]. His family reports that he saw his primary physician on the fifth. At that time he had a creatinine of 1.9. Creatinine is 2.3 today. Other findings in the ER today are a elevated BNP and an elevated troponin. This patient has a past history of cardiac arrhythmia and has a pacemaker present. Concern is present for an acute cardiac event which could have causes troponin elevation and acute onset of CHF. However, the urinalysis shows he has a UTI and if this has been present for a while she could have inflammatory changes causing false positives in the findings. Clinically as patient does not have findings of pulmonary edema or peripheral edema. He says he may have had chest pain a couple days ago but has no chest pain when seen today. Potassium level is low. This patient also reports fevers and chills as an outpatient which would correlate with infection. DS: Diagnosis - Discharge Diagnosis (1) Acute non-ST elevation myocardial infarction (NSTEMI) Status: Resolved (2) Acute renal insufficiency Status: Resolved (3) CKD (chronic kidney disease) stage 4, GFR 15-29 ml/min Status: Chronic (4) Secondary hyperparathyroidism Status: Chronic DS: Summary Hospital Course: Patient admitted secondary to acute metabolic encephalopathy and was treated for urinary tract infection with IV Rocephin which was subsequently switched to p.o. Patient conditions improved. He was also diagnosed with non-ST elevation [place], for which cardiology was consulted however patient was treated conservatively. He was started on Imdur. He was also continued on his Coumadin. Patient will follow up with outpatient PCP for possible novel oral anticoagulation. Aspirin is contraindicated due to patient history of GI bleed. Nephrology was consulted due to worsening renal function and a Garcias was placed. Urology was consulted and recommended to continue Garcias 10 days. Patient was also started on Flomax. Physical therapy was consulted. DVT and GI prophylaxis were provided. Patient's conditions prior to discharge improved and vitals remained stable. - Time Spent with Patient Total time spent providing and/or coordinating discharge services: Greater than 30 minutes - Quality: VTE Deep Vein Thrombosis/Pulmonary Embolism Present on Admission: No Exam Vital signs: Vital Signs 04/26/18 12:00 04/26/18 16:00 04/26/18 19:45 Temperature 98.2 F 98.7 F Pulse Rate 61 73 71 Respiratory Rate 20 20 Blood Pressure 125/59 L 151/73 H Pulse Oximetry 95 96 04/26/18 20:00 04/26/18 23:45 04/27/18 00:00 Temperature 100 F H 98.7 F Pulse Rate 73 69 70 Respiratory Rate 16 18 Blood Pressure 145/67 H 142/69 H Pulse Oximetry 95 93 L 04/27/18 04:00 04/27/18 04:15 04/27/18 08:00 Temperature 98.8 F 99.0 F Pulse Rate 77 72 75 Respiratory Rate 16 18 Blood Pressure 156/80 H 154/76 H Pulse Oximetry 95 94 L Intake & Output 04/26/18 04/27/18 04/27/18 18:59 06:59 18:59 Intake Total 1360 / 1360 1720 / 1720 Output Total 2300 / 2300 950 / 950 Balance -940 / -940 770 / 770 Weight 70.8 kg Intake: IV 1000 / 1000 1000 / 1000 D5W/1/2 NS Inj 1,000 ML @ 84 1000 / 1000 1000 / 1000 mls/hr IV.CONT .[id number] [facility] Rx# :[id number] Oral 360 / 360 720 / 720 Output: Urine 2300 / 2300 950 / 950 Other: # Bowel Movements 0 Narrative: GENERAL: NAD SKIN: Warm and dry. HEAD: Normocephalic. EYES: No scleral icterus. No injection or drainage. NECK: Supple, trachea midline. No JVD or lymphadenopathy. CARDIOVASCULAR: Regular rate and rhythm without murmurs, gallops, or rubs. RESPIRATORY: Breath sounds equal bilaterally. No accessory muscle use. GASTROINTESTINAL: Abdomen soft, non-tender, nondistended. MUSCULOSKELETAL: No cyanosis, or edema. BACK: Nontender without obvious deformity. No CVA tenderness. Results Procedures completed during hospitalization: None Labs on day of discharge: Labs from last 24 hours 04/27/18 09:35 Sodium Pending Potassium Pending Chloride Pending Carbon Dioxide Pending Anion Gap Pending BUN Pending Creatinine Pending Random Glucose Pending Calcium Pending Magnesium Pending Vitamin D 25-Hydroxy Pending - Impressions ITS Impressions Abdomen/Pelvis CT 04/24/18 09:49 CONCLUSION: 1. Moderate bilateral hydronephrosis and hydroureter leading to a distended urinary bladder. Suspect a bladder outlet obstruction. 2. Small diverticulum left urinary bladder. 3. Right renal cyst and small hyperdense lesion right kidney may be due to complex cyst. 4. Diverticulosis without diverticulitis. 5. Right basilar density likely atelectasis. Chest X-Ray 04/24/18 09:49 CONCLUSION: Slight elevation right hemidiaphragm. No infiltrate. Head CT 04/24/18 09:49 CONCLUSION: 1. 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 2. No acute intracranial abnormality. Discharge Plan - Discharge Disposition Patient Disposition: /Home Health Service - Discharge Condition Condition: Good - Discharge Order Discharge Orders: Discharge Order (Routine); Ordered 04/27/18 Ordered By: Juancarlos Castelan - Physicians Team Primary Care Provider: Ish Dominguez Attending Provider: Juancarlos Castelan Other Providers: Jakob Johnson MD ; Shawn Young MD ; Maximiliano Cuenca MD
[2018-04-27 10:57] LABS: Calcium 7.9 mg/dL (8.5-10.1); Carbon Dioxide 26.8 meq/L (21.0-32.0); Magnesium 1.8 mg/dL (1.5-2.5)
== END 2018-04-27 16:25 | disposition home health service (06) ==
LOC: NEPC 09:18 → NEDA 12:41 → HCIS 19:44 → N04 04-25 18:48
PROVIDERS: ADMIT Hospitalist; ATTEND Hospitalist